=== PATIENT | male | born 1990 ===

== ENCOUNTER 2022-12-14 10:24 | Emergency (ER) | payer OTHER, SELFPAY ==
[2022-12-14 10:50] VITALS: BP 132/80; PULSE 71; RESP 16; TEMP 36.4; O2SAT 100; BMI 25.1
--- NOTE | 2022-12-15 05:16 | ED_ITS ---
HPI - Abdominal Pain General Chief Complaint: Abdominal Pain Stated Complaint: Abdominal pain Time Seen by Provider: 12/14/22 10:44 History of Present Illness HPI narrative: 32-year-old man presenting to the emergency department with concern of increased swelling and pain in his left low abdomen. He does not recall any particular trauma or injury. Has had some intermittent discomfort over this last many months; uncertain time frame. Increased discomfort though over the last couple of weeks and then more recently increased swelling. It seems to ache. He does work construction. No dysuria. Denies constipation making what would he would consider is normal and regular stools. No nausea or vomiting. Does not feel he needs any pain medication at the moment. Related Data Home Medications Medication Instructions Recorded Confirmed No Known Home Medications 12/14/22 12/14/22 Allergies Allergy/AdvReac Type Severity Reaction Status Date / Time No Known Drug Allergies Allergy Verified 12/14/22 10:58 Review of Systems Status of ROS Reports: 6 or more systems reviewed and unremarkable except as noted in History and below PFSH [facility] Social History Smoking Status: Never smoker How often do you have a drink containing alcohol: never AUDIT-C Alcohol total score: 0 Non-prescribed substance use: denies use service: No Exam Narrative: Exam Narrative: Pleasant. Seems uncomfortable. He is hunched over a little while seated on the bed. Hands at his left low abdomen. Breathing easily. Skin is warm and dry. Heart with regular rate and rhythm. Lungs appear to be clear. Skin is warm and dry. Examination of the abdomen soft and nontender until the left inguinal area where there is a soft moderate broad swelling extending to the upper scrotal area. There is no calor, induration, erythema. This appears to be an inguinal hernia. I do attempt some reduction but it is moderately tender limiting this. Further I do not think this is an incarcerated hernia at this point. Const: Vital Signs, click to edit/add: Vital Signs - 24 hr 12/14/22 10:50 Temperature 97.6 F Pulse Rate [Right Pulse Oximeter] 71 Respiratory Rate 16 Blood Pressure [Ri ght Upper Arm] 132/80 Pulse Oximetry 100 Oxygen Delivery Me thod Room Air Course Vital Signs Vital signs: Initial Vital Signs Temperature 97.6 F 12/14/22 10:50 Temperature Source Temporal Artery Scan 12/14/22 10:50 Pulse Rate 71 12/14/22 10:50 Respiratory Rate 16 12/14/22 10:50 Blood Pressure 132/80 12/14/22 10:50 Blood Pressure Mean 97 12/14/22 10:50 Blood Pressure Position Sitting 12/14/22 10:50 Pulse Oximetry 100 12/14/22 10:50 Oxygen Delivery Method 12/14/22 10:50 Vital Signs Temperature 97.6 F 12/14/22 10:50 Pulse Rate 71 12/14/22 10:50 Respiratory Rate 16 12/14/22 10:50 Blood Pressure 132/80 12/14/22 10:50 Pulse Oximetry 100 12/14/22 10:50 Oxygen Delivery Method 12/14/22 10:50 Temperature 97.6 F 12/14/22 10:50 Pulse Rate 71 12/14/22 10:50 Respiratory Rate 16 12/14/22 10:50 Blood Pressure 132/80 12/14/22 10:50 Pulse Oximetry 100 12/14/22 10:50 Oxygen Delivery Method 12/14/22 10:50 MDM - Abdominal Pain MDM Narrative Medical decision making narrative: Appears to be a clear hernia here. I do discuss this with our surgeon on-call to arrange next steps in care. I do not think this is incarcerated and will avoid imaging at this time. We have made an appointment in clinic for follow-up shortly. See patient discharge plan Discharge Plan Discharge Clinical Impression: Inguinal hernia Patient Disposition: Home, Self-Care Condition: Stable Additional Instructions: Try not to lift anything more than 20 lb until further recommendations from surgical followup. You can take up to 800 mg of ibuprofen or up to 1000 mg of acetaminophen per dose. Instead of the ibuprofen could also try up to 500 mg of naproxen 2 times daily. You have follow-up appointment with surgery on December 23 --see below. You might be helped from placement of a hernia truss. I have written a prescription for this. You will likely be able to find this at [facility] or other pharmacies. Be seen sooner if have marked increase in pain, redness, tension, heat. Repeated vomiting. Inability to pass flatus or stools. Try not to strain on the toilet. Your surgery consultation is scheduled at the [facility] on 12/23 with a 9:30am arrival time. If you have any questions or need to reschedule, please call [phone]. [facility] [address] [place] [address] Trate de no levantar nada m?s de 20 libras hasta que se recomienden m?s del seguimiento quir?rgico. Puede ad hasta 800 mg de ibuprofeno o hasta 1000 mg de paracetamol por dosis. En lugar del ibuprofeno tambi?n podr?a probar hasta 500 mg de naproxeno 2 veces al d?a. Tiene eliel gurmeet de seguimiento con cirug?a el , abhinav a continuaci?n. Es posible que le ayuden con la colocaci?n de eliel armadura para hernias. He escrito eliel receta para esto. Es probable que pueda encontrar esto en [facility] u otras farmacias. Se angel? antes si tienen marcado aumento del dolor, enrojecimiento, tensi?n, calor. V?mitos repetidos. Incapacidad para evacuar flatos o heces. Trate de no esforzarse en el inodoro. Doe consulta de cirug?a est? programada en la [facility] el 12/23 con eliel hora de llegada a las 9:30 a.m. Si tiene alguna pregunta o necesita reprogramar, llame al [phone]. Prescriptions: No Action No Known Home Medications Follow Up/Referrals: Provider,Not a Local [Primary Care Provider] - Stand Alone Forms: [employer] Info Instructions
== END 2022-12-14 13:16 | disposition home or self-care (01) ==
PROVIDERS: Emergency Provider Family Medicine
DX: K40.90 Unilateral inguinal hernia, without obstruction or gangrene, not specified as recurrent (principal)
CPT/HCPCS: 99282; 99283; T1013

== ENCOUNTER 2023-01-05 10:57 | Day surgery (SDC) | payer OTHER, SELFPAY ==
[2023-01-05] VITALS (14 sets, daily range): BP systolic 124–140; BP diastolic 76–97; PULSE 65–97; RESP 11–18; TEMP 36.2–36.7; O2SAT 95–99; BMI 24.9
--- NOTE | 2023-01-05 11:19 | SUR.PREOP ---
Patient provided home covid negative results to RN.
[2023-01-05] MEDS: LACTATED RINGERS 1000 ML 1,000 ML 100 ML IV (12:00)
[2023-01-05] MEDS: SODIUM CHLORIDE 0.9 % (FLUSH) 10 ML SYRINGE IVF (12:00)
--- NOTE | 2023-01-05 12:00 | W.ANESCHARGE ---
Anesthesia Charges Start Date/Time Anesthesia Start Date: 01/05/23 Anesthesia Start Time: 12:17 Stop Date/Time Anesthesia Stop Date: 01/05/23 Anesthesia Stop Time: 14:08
[2023-01-05] MEDS: CEFAZOLIN 2 GM INJ IVP (12:26)
[2023-01-05] MEDS: BUPIVACAINE 0.25% 30 ML INJECTION (12:42)
--- NOTE | 2023-01-05 12:43 | W.ANESCHARGE ---
Anesthesia Charges Start Date/Time Anesthesia Start Date: 01/05/23 Anesthesia Start Time: 12:17 Stop Date/Time Anesthesia Stop Date: 01/05/23 Anesthesia Stop Time: 14:08
--- NOTE | 2023-01-05 14:00 | P.GSOP_ITS ---
Operative Note Date of procedure: 01/05/23 Pre-op diagnosis: 1. Symptomatic left inguinal hernia. Post-op diagnosis: 1. Incarcerated indirect left inguinal hernia containing omentum. Type of Procedure: 1. Open left inguinal hernia repair with mesh. Indications: 32-year-old male was seen in clinic for evaluation of a painful left inguinal bulge that he noticed over 1 month ago. Patient was seen in the emergency room for this. Patient described the pain as sharp and present while patient is working. Patient works in construction with concrete. He denied any episodes of incarceration. On clinical exam he had a moderately-sized left inguinal hernia extending to the superior scrotum. This was reducible. Given patient's clinical history and his physical exam, an open left inguinal hernia repair was recommended. The procedure was discussed in detail. The risks associated procedure including infection, bleeding, injury to preperitoneal organs, hernia recurrence, and nerve injury and pain were all discussed with the patient, and he agreed to proceed. Procedure Description: After discussing the risks and benefits of the procedure, the patient signed informed consent.? The operative site was marked and the patient was brought to the operating room and placed on the operating table in supine position.? Care was taken to pad the patient's pressure points.?? The patient was then intubated by anesthesia.?? The operative site was then prepped and draped in the usual sterile fashion.? A time-out was then performed. Surgical site was prepped and draped in sterile fashion. Site of the incision was marked with a marking pen and local anesthetic was injected. An oblique incision was made just above and medial to the left inguinal ligament. Subcutaneous tissue was dissected to external obliques. Superficial subcutaneous vascular branches were clamped, divided and tied with 3-0 Vicryl ties. Small i ncision was made through the external oblique aponeurosis with scalpel. I then used Metzenbaum scissors to dissect under external obliques and extend my incision. Mosquito clamps were placed on the edges of external oblique exposing the inguinal floor. Ilioinguinal nerve was identified and was going through the plain of dissection. The nerve was divided proximally and distally and a 3 cm segment of it was excised. This was not sent to pathology. I then identified the spermatic cord and the hernia sac. The hernia was reduced to be able to dissect around the spermatic cord and hernia sac. I bluntly dissected subcutaneous tissues in order to place Alvino drain around the cord structures. Cremasteric fibers were peeled off and dissected off the hernia sac and cord structures. Cremasteric fibers were tightly adherent to the hernia sac and spermatic cord. This dissection was lengthy to separate the spermatic cord and the hernia sac. There was evidence of indirect inguinal hernia. The indirect hernia sac was incised and examined from the inside. Omentum was incarcerated in the hernia sac. This was easily reduced. A stitch using 3-0 Vicryl was placed near the base of the hernia sac through the sac and the hernia sac tied off. Hernia sac was then excised and not sent to pathology. The cut edge of the hernia sac was then oversewn with a locking Vicryl suture. This was then pushed into preperitoneal space through the internal ring. Surgical field was examined for bleeding and hemostasis was achieved with cautery. A small Bard mesh plug was inserted through the internal ring and secured to the adjacent tissues with interrupted 0-0 Neurolon sutures. A Bard mesh onlay was also used for hernia repair. The mesh onlay was sutured in place with interrupted 0-0 Neurolon sutures to the conjoint tendon medially and shelving edge laterally, pubic tubercle inferiorly. Simple interrupted sutures were placed using 0-0 Neurolon at the base of internal inguinal ring making it only large enough to fit a tip of one finger through. Spermatic cord was placed back into scrotum. Florala drain was removed. External oblique aponeurosis was closed with a running 3-0 Vicryl. Additional local anesthetic was injected into subcutaneous tissues. Grzegorz's fascia and subcutaneous tissue was re- approximated with interrupted Vicryl stitches. Skin incision was closed with 4-0 Monocryl subcuticular stitch. Steri strips and sterile dressing were applied over incision. All counts were correct at the end of the case. Patient tolerated this procedure well and was transferred to PACU in stable condition. Findings: Indirect hernia repaired with mesh plug and mesh onlay. Implants: Bard mesh Anesthesia: GETA Surgeon: Davion Mccracken MD Estimated blood loss (mL): 10 Condition: stable Disposition: PACU
[2023-01-05] MEDS: fentaNYL 100 MCG/2 ML inj 50 MCG IVP (14:37)
== END 2023-01-05 16:26 | disposition home or self-care (01) ==
PROVIDERS: Visit Provider Surgery
PROC: (CPT 49507; principal; 2023-01-05 12:00)
DX: K40.30 Unilateral inguinal hernia, with obstruction, without gangrene, not specified as recurrent (principal)
CPT/HCPCS: 49507; 00830; T1013; C1781; J0330; J0690; J1100; J2250; J2405; J2704; J2710; J3010; J3490; J7120